=== PATIENT | female | born 1975 | race Caucasian/White ===

== ENCOUNTER 2023-08-17 11:29 | Outpatient (AMB) | payer OTHER, SELFPAY ==
[2023-08-17 11:32] VITALS: BP 116/72; PULSE 72; TEMP 36.8; O2SAT 98; BMI 24.6
--- NOTE | 2023-08-17 11:32 | AM.OFFWIN_ITS ---
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 Patient reports a runny nose, watery eyes, left ear pain, cough and sore throat for which she has been taking Tylenol. Patient believes that she has had fevers as well. Patient reports her cough is productive of green phlegm. Patient denies any recent sick contacts. [facility] Social History Patient Tobacco Use Status: Never used Tobacco Review of Systems Const All systems reviewed & are unremarkable except as noted in HPI and below Eyes Reports no additional complaints ENT Reports no additional complaints, Reports otalgia (left), Reports nasal discharge and Reports sore throat Card Reports no additional complaints Resp Reports no additional complaints Skin/Breast Reports system reviewed and no additional complaints, except as documented Neuro Reports no additional complaints Psych Reports no additional complaints Physical Exam Vital Signs: Last Vital Signs Temp 98.2 F 08/17/23 11:32 Pulse 72 08/17/23 11:32 BP 116/72 08/17/23 11:32 Pulse Ox 98 08/17/23 11:32 Oxygen Delivery Method Room Air 08/17/23 11:32 BMI result Body Mass Index 24.6 Patient is afebrile. Const General: cooperative, healthy appearing, comfortable, no acute distress, well developed, alert and awake Nutritional Appearance: average body habitus Orientation/consciousness: patient oriented x3 Limitations: no limitations HEENT Head: Yes normal to inspection Ears: hearing grossly normal bilaterally, external ears normal, TM's abnormal bilaterally (left TM bulging without erythema) and EAC's normal General nose exam: Normal external nose present and Normal nares present Face and sinus: Yes normal facial exam and Yes sinuses nontender Mouth: moist mucous membranes Teeth and gingiva: dentition normal Throat: Yes postnasal drainage Eyes General: appearance normal, both eyes and all related structures Visual Bolivar: normal visual bolivar by confrontation Alignment and Position: alignment normal Periorbital: periorbital findings normal Eyelids: Yes eyelids normal Conjunctivae: conjunctivae normal Sclerae: sclerae normal Corneas: corneas normal Pupils: Equal, round and reactive pupils present EOM: EOMs intact bilaterally Neck Lymphatic: no lymphadenopathy noted Resp Effort & Inspection: normal respiratory effort, able to speak in complete sentences, no audible wheezes, no cough and no respiratory distress Auscultation: clear to auscultation bilaterally Cardio Rate: regular rate Rhythm: regular rhythm Skin General skin exam: no rashes or lesions noted Neuro General: patient oriented x3 Cranial nerves: Yes Equal, round and reactive pupils present Psych Appearance: grossly normal Mental Status: mental status grossly normal Insight: Good insight present (Psych) Judgement: Good judgement present (Psych) Results Reviewed Results Reviewed: Rapid strep negative Assessment & Plan Assessment & Plan (1) Acute upper respiratory infection: Code(s): J06.9 - Acute upper respiratory infection, unspecified Plan Testing for influenza is ordered and pending. There is no clinical evidence of a bacterial etiology. Patient will utilize ibuprofen as well as an antihistamine daily for management of her symptoms. Orders: Orders SARS-CoV2/FLU/RSV Today J06.9 - Acute upper respiratory infection, unspecified Coding Level of Care Code New Pt Level 3 (83640) Diagnoses Acute upper respiratory infection J06.9 Time Spent (min) 20
== END 2023-08-17 12:50 | disposition home or self-care (01) ==
PROVIDERS: PCP Pediatrics; Visit Provider Physician Assistant
DX: J06.9 Acute upper respiratory infection, unspecified (principal); J02.9 Acute pharyngitis, unspecified
CPT/HCPCS: 87880; 99203

== ENCOUNTER 2023-08-17 12:57 | Outpatient (REF) | payer OTHER, SELFPAY ==
[2023-08-17 13:39] LABS: Influenza A PCR NEGATIVE (Negative); Influenza B PCR NEGATIVE (Negative); Resp Syncy Virus RNA Qual PCR NEGATIVE (Negative); SARS COV2 PCR INHOUSE NEGATIVE (Negative)
== END 2023-08-17 12:58 | disposition home or self-care (01) ==
LOC: HO.LNP 12:57
PROVIDERS: Visit Provider Physician Assistant
DX: J06.9 Acute upper respiratory infection, unspecified (principal); Z13.9 Encounter for screening, unspecified
CPT/HCPCS: 0241U

== ENCOUNTER 2024-05-26 11:18 | Emergency (ER) | payer OTHER, SELFPAY ==
--- NOTE | ~2024-05-26 | XR_ITS ---
CLINICAL HISTORY: abdominal pain and distention 2 view abdomen, AP chest Comparison: None Findings: Nonobstructive bowel gas pattern. No pneumoperitoneum. No pathologic calcifications. Right upper quadrant surgical clips. Punctate calcification in the pelvis on the right likely phleboliths. Lung bases are clear. There are no acute fracture. IMPRESSION: No acute findings. This document has been electronically signed by: Georgette Velez MD on 05/26/2024 17:37:48
[2024-05-26 11:37] VITALS: BP 113/68; PULSE 78; RESP 16; TEMP 36.1; O2SAT 100; BMI 25.2
--- NOTE | 2024-05-26 11:48 | ED_ITS ---
HPI - General Adult General Chief complaint: Abdominal Pain Stated complaint: stomach issues Time Seen by Provider: 05/26/24 15:56 History of Present Illness ED Provider: Jose ALAS narrative: The patient is a 48-year-old woman who says that she has felt constipated for about the last 5 or 6 days. Yesterday evening she took a laxative. She started to have passage of stool last night and then developed diarrhea. This morning she thought that she had passed something that might have been a worm in her loose stools. She is concerned because a month ago she was traveling in [place] and she ate a lot of street food. She has had no fevers, sweats, chills. She has had nausea but no vomiting. She feels like her abdomen is distended. There was no blood in her stool. She also feels that she has a dry mouth and some blistering on the inside of her lips. Related Data Home Medications ?Medication ?Instructions ?Recorded ?Confirmed albuterol sulfate 2.5 mg/3 mL mg inhalation 08/17/23 (0.083 %) solution for nebulization albuterol sulfate 90 mcg/actuation inhalation 08/17/23 aerosol inhaler Previous Rx's ?Medication ?Instructions ?Recorded ibuprofen 400 mg tablet 400 mg PO Q6H PRN pain #14 tabs 05/26/24 ondansetron 4 mg disintegrating 4 mg PO Q6H PRN nausea and 05/26/24 tablet vomiting #10 tabs Allergies Allergy/AdvReac Type Severity Reaction Status Date / Time bee pollen [bees] Allergy Anaphylaxis Verified 05/26/24 11:41 Review of Systems 2 Review of Systems: Yes all other systems are reviewed and are negative [facility] Social History Social History Patient Tobacco Use Status: Never used Tobacco Physical Exam ED Vital Signs: Vital Signs - 24 hr 05/26/24 18:09 Temperature 97.0 F Pulse Rate 78 Respiratory Rate 16 Blood Pressure 113/68 Pulse Oximetry 100 Oxygen Delivery Method Room Air BMI result Body Mass Index 25.2 Const Other: The patient is a 48-year-old woman who was awake and alert and who does not appear obviously acutely ill. Orientation/consciousness: patient oriented x3 HENMT Other: The appearance of the face is unremarkable. The face is symmetrical. Mucous membranes moist. Eyes General: appearance normal, both eyes and all related structures Neck Neck: Yes normal visual inspection and Yes full ROM Resp Effort & Inspection: normal respiratory effort Auscultation: clear to auscultation bilaterally Cardio Rate: regular rate Rhythm: regular rhythm Heart sounds: S1 normal heart sound present and S2 normal heart sound present GI Other: the patient described her abdomen is being much more protuberant than it typically is. I found the abdomen soft and not significantly tender without any objective findings of distention. Rectal exam revealed no fecal impaction of the rectum. There was no obvious sign of significant liquid stool. Skin Other: The skin is dry and unremarkable. Neuro General: patient oriented x3, tone normal, moves all extremities, no focal motor deficits and CN's II-XI intact bilaterally Extrem General: Yes no pedal edema and Yes no calf tenderness Course Course Course Narrative: RME: 48-year-old female presents to ED for worms in stool. Patient states she was constipated and then took last day started have normal bowel movements but then last night and this morning she saw worms moving in her bowel movements in the toilet. Patient states last month she went to [place]. Abdomen benign and nontender. Labs stool sample UA ordered Medications Administered Discontinued Medications Generic Name Dose Route Start Last Admin Trade Name Freq PRN Reason Stop Dose Admin Ketorolac Tromethamine 30 mg 05/26/24 17:52 05/26/24 18:02 Ketorolac Tromethamine 30 Mg/Ml Vial IM 05/26/24 17:53 30 mg ONCE ONE Administration Ondansetron HCl 4 mg 05/26/24 17:52 05/26/24 18:02 Ondansetron Odt 4 Mg Tab.Rapdis TRANSLINGU 05/26/24 17:53 4 mg ONCE ONE Administration Medical Decision Making Medical Decision Making [facility] Narrative: The patient is a 48-year-old woman who says that she felt constipated for a few days and used a laxative last night and then had loose stools with concern about a possible worm in her stool. Clinically the patient looks stable and her labs are unremarkable. There is no fecal impaction. No significant sign of constipation or other problem on an abdominal series. I had hoped to send stool for ova and parasites and a stool panel. However the patient was unable to produce any significant amount of stool for testing in the emergency department. Since she looks quite well I felt she could be discharged to attempt to provide a stool sample at home which he can return to the lab worse she can follow up with her regular doctor. Lab Data 05/26/24 11:51 05/26/24 11:51 Labs: Lab Results 05/26/24 05/26/24 Range/Units 11:51 11:57 WBC 5.8 (4.8-10.8) X10*3/uL RBC 4.37 (4.20-5.50) X10*6/uL Hgb 11.9 L (12.0-16.0) g/dl Hct 36.8 L (37.0-47.0) % MCV 84.2 (80.0-98.0) fL MCH 27.2 (27.0-33.0) pg MCHC 32.3 (31.0-35.0) g/dl RDW 13.2 (11.0-16.0) % Plt Count 262 (160-400) X10*3/uL MPV 11.4 (9.4-12.3) fL Immature Gran % (Auto) 0.2 (0.0-0.4) % Neut % (Auto) 54.9 (45-73) % Lymph % (Auto) 36.2 (20-40) % Hayes % (Auto) 7.3 (2-11) % Eos % (Auto) 0.9 (0-4) % Baso % (Auto) 0.5 (0-2) % Lymph # (Auto) 2.1 (1.2-4.9) X10*3/uL Hayes # (Auto) 0.4 (0.1-1.2) X10*3/uL Eos # (Auto) 0.1 (0.0-0.4) X10*3/uL Baso # (Auto) 0.0 (0.0-0.2) X10*3/uL Abs Immat Gran (auto) 0.01 (0.00-0.03) X10*3/uL Absolute Neuts (auto) 3.2 (2.0-8.3) x10*3/uL Absolute Nucleated RBC 0.000 (0.0-0.012) X10*3/uL Nucleated RBC % (auto) 0.0 (0.0-0.2) /100WBC Sodium 140 (135-145) mmol/L Potassium 4.0 (3.3-5.1) mmol/L Chloride 107 (96-108) mmol/L Carbon Dioxide 26 (22-29) mmol/L Anion Gap 11 L (12-20) BUN 11 (9-16) mg/dL Creatinine 0.72 (0.5-1.4) mg/dL Estim Creat Clear Calc 94.9 Estimated GFR > 60 Random Glucose 94 (60-115) mg/dL Calcium 8.6 (8.4-10.2) mg/dL Total Bilirubin 0.4 (0.0-1.0) mg/dL AST 17 (5-31) U/L ALT 13 (0-31) U/L Alkaline Phosphatase 51 (39-117) U/L Total Protein 7.0 (6.5-8.0) g/dL Albumin 4.1 (3.5-5.0) g/dL Beta HCG, Quant < 2 mIU/mL Urine Color Dark Yellow Urine Appearance Clear Urine pH 5.5 (5.0-9.0) Ur Specific [place] 1.025 (1.005-1.025) Urine Protein Negative (Neg-Trace) mg/dL Urine Glucose (UA) Negative (Negative) mg/dL Urine Ketones Trace (Negative) mg/dL Urine Blood Negative (Negative) Urine Nitrite Negative (Negative) Ur Leukocyte Esterase Negative (Negative) Discharge Plan Discharge Clinical Impression: Diarrhea, Abdominal discomfort Patient Disposition: Home, Self-Care Additional Instructions: Your blood testing and abdominal x-rays today are reassuring. My hope is that you will be able to produce a stool sample for additional testing at home. If you are able to produce a stool sample please return it to the lab here. Alternatively you can contact your primary care doctor's office and arrange for outpatient testing through your primary care doctor's office. I have sent a prescription for ondansetron, an antinausea medication you can use for any nausea symptoms. Also I have sent a prescription for ibuprofen which you may use for discomfort as needed. Please stay in touch with your regular doctor's office and follow up with your regular doctor soon. Return to the emergency room if significantly worse. Prescriptions: New ibuprofen 400 mg tablet 400 mg PO Q6H PRN (Reason: pain) Qty: 14 0RF ondansetron 4 mg tablet,disintegrating 4 mg PO Q6H PRN (Reason: nausea and vomiting) Qty: 10 0RF No Action albuterol sulfate 90 mcg/actuation HFA aerosol inhaler inhalation albuterol sulfate 2.5 mg /3 mL (0.083 %) solution for nebulization inhalation Interventions: ED Discharge Assessment Last Done: 05/26/24 18:09 Discharge Date/Time: 05/26/24 18:11 Print Language: [place]
[2024-05-26 11:54] LABS: MANUAL DIFF FLAG NO
[2024-05-26 11:56] LABS: Basophils Percent Auto 0.5 % (0-2); Eosinophils Absolute Auto 0.1 X10*3/uL (0.0-0.4); Eosinophils Percent Auto 0.9 % (0-4); Hematocrit 36.8 % (37.0-47.0); Hemoglobin 11.9 g/dl (12.0-16.0); Imm Gran Abs Auto 0.01 X10*3/uL (0.00-0.03); Imm Gran Pct Auto 0.2 % (0.0-0.4); Lymphocytes Absolute Auto 2.1 X10*3/uL (1.2-4.9); Lymphocytes Percent Auto 36.2 % (20-40); Mean Corpuscular HGB Conc 32.3 g/dl (31.0-35.0); Mean Corpuscular Hemoglobin 27.2 pg (27.0-33.0); Mean Corpuscular Volume 84.2 fL (80.0-98.0); Mean Platelet Volume 11.4 fL (9.4-12.3); Monocytes Absolute Auto 0.4 X10*3/uL (0.1-1.2); Monocytes Percent Auto 7.3 % (2-11); Neutrophils Absolute Auto 3.2 x10*3/uL (2.0-8.3); Neutrophils Percent Auto 54.9 % (45-73); Platelet Count 262 X10*3/uL (160-400); Red Blood Count 4.37 X10*6/uL (4.20-5.50); Red Cell Distribution Width 13.2 % (11.0-16.0); White Blood Count 5.8 X10*3/uL (4.8-10.8)
[2024-05-26 12:05] LABS: Appearance Urine Clear; Color Urine Dark Yellow; Glucose Urine UA Negative (Negative); Leukocyte Esterase Urine Negative (Negative); Nitrite Urine Negative (Negative); PH 5.5 (5.0-9.0); Specific Gravity - Urine 1.025 (1.005-1.025); Urine Blood Negative (Negative); Urine Ketones Trace mg/dL (Negative); Urine Protein Negative (Neg-Trace)
[2024-05-26 12:21] LABS: Alanine Aminotransferase 13 U/L (0-31); Albumin Level 4.1 g/dL (3.5-5.0); Alkaline Phosphatase 51 U/L (39-117); Anion Gap 11 (12-20); Aspartate Amino Transferase 17 U/L (5-31); Bilirubin Total 0.4 mg/dL (0.0-1.0); Blood Urea Nitrogen 11 mg/dL (9-16); Calcium 8.6 mg/dL (8.4-10.2); Carbon Dioxide 26 mmol/L (22-29); Chloride 107 mmol/L (96-108); Creatinine Clr Calc Pharmacy 94.9; Estimated Glomerular Filt Rate > 60; Glucose Random 94 mg/dL (60-115); HCG Quantitative < 2 mIU/mL; Sodium 140 mmol/L (135-145)
--- OUTSIDE RECORDS SUMMARY | 2024-05-26 15:46 | XMS_ITS | Clinical Summary ---
Author Organization [facility] Address [address] [place] [address] Care Team Providers Care Wrapper Rewinder Name Role Phone Unavailable Primary Care Provider Unavailabl e Social History Tobacco Use Types Packs/Day Years Used Date Smoking Tobacco: Never Assessed Sex and Gender Information Value Date Recorded Sex Assigned at Not on file Gender Identity Not on file Sexual Orientation Not on file Plan of Treatment Health Maintenance Due Date Last Done Comments Hepatitis C Virus Screening 1977 HIV Screening 1990 DTaP/Tdap/Td Vaccines (1 - Tdap) 1996 Hepatitis B Vaccines (1 of 3 - 19+ 3-dose series) 1996 COVID-19 Vaccine (2023-2 5 season) 2023 Pneumococcal Vaccine: Pediat velasquez (0-5 Years) and At-Risk Patients (6 to 49 Years) Aged Out No longer eligible b ased on patient's age to complete this topic
[2024-05-26] MEDS: Ondansetron ODT 4 MG TAB.RAPDIS TRANSLINGU (18:02)
[2024-05-26] MEDS: Ketorolac Tromethamine 30 MG/ML VIAL IM (18:02)
[2024-05-26 18:09] VITALS: BP 113/68; PULSE 78; RESP 16; TEMP 36.1; O2SAT 100
--- NOTE | 2024-05-26 18:09 | PC.NURSE ---
pt medicated per APR- pt discharged with stool collection kit- verbalizes understanding of instructions
== END 2024-05-26 18:11 | disposition home or self-care (01) ==
PROVIDERS: Physician Assistant; Emergency Provider Emergency Medicine; PCP Pediatrics
DX: K59.00 Constipation, unspecified (principal); R19.7 Diarrhea, unspecified; R10.2 Pelvic and perineal pain; Z79.899 Other long term (current) drug therapy
CPT/HCPCS: 36415; 74022; 80053; 81003; 84702; 85025; 96372; 99284; J1885

== ENCOUNTER → 2024-05-26 16:08 | Outpatient (BNV) | payer OTHER, SELFPAY | PROVIDERS: Emergency Provider Emergency Medicine; PCP Pediatrics; Visit Provider Specialist | DX: R10.9 Unspecified abdominal pain (principal) | CPT/HCPCS: 74022 ==